=== PATIENT | male | born 1960 | race Caucasian/White ===

== ENCOUNTER 2019-08-17 11:18 | Outpatient (CLI) | payer BC, SELFPAY ==
[2019-08-17 11:55] LABS: Cholesterol 219 mg/dL (0-200); HDL Direct 34 mg/dL; Triglycerides 105 mg/dL (<150)
[2019-08-17 12:05] LABS: LDL Cholesterol Direct 154 mg/dL
== END 2019-08-17 11:19 | disposition home or self-care (01) ==
PROVIDERS: Visit Provider Surgery
DX: E78.1 Pure hyperglyceridemia (principal)
CPT/HCPCS: 36415; 80061

== ENCOUNTER 2019-09-10 00:56 | Outpatient (CLI) | payer BC, SELFPAY ==
[2019-09-10 20:05] LABS: SARS-CoV-2 RNA PCR Negative
== END 2019-09-10 00:57 | disposition home or self-care (01) ==
LOC: ANHCOVIDDT 00:57
PROVIDERS: Visit Provider Surgery
DX: Z01.812 Encounter for preprocedural laboratory examination (principal); Z11.59 Encounter for screening for other viral diseases
CPT/HCPCS: 87635; C9803; U0003

== ENCOUNTER 2019-09-13 00:44 | Day surgery (SDC) | payer BC, SELFPAY ==
[2019-09-02 14:37] VITALS: BMI 27.6
[2019-09-13 09:52] VITALS: BP 121/82; PULSE 100; RESP 18; TEMP 36.3; O2SAT 98
[2019-09-13] MEDS: LACTATED RINGERS 1,000 ML 150 ML IV CONT (10:14)
--- NOTE | 2019-09-13 10:41 | WPDANESEPPF ---
Anes - Initial Pre Proc Eval Procedure: Operation Date: 09/13/19 12:00 Proposed Procedures p Esophagogastroduodenoscopy With Possible Dilation & Colonoscopy - Fred Mary DO Date/Time: 09/13/19 10:41 Surgeon: Fred Mary DO Pre Op Diagnosis: Epigastric Pain Patient Data Age: 59 Gender: M Height: 1.85 m Weight: 95 kg Last Vital Signs Temp 36.3 C L 09/13/19 09:52 Pulse 100 09/13/19 09:52 Resp 18 09/13/19 09:52 BP 121/82 09/13/19 09:52 Pulse Ox 98 09/13/19 09:52 Allergies Allergy/AdvReac Type Severity Reaction Status Date / Time milk Allergy Unknown inflammatio Verified 09/13/19 09:51 n Home Medications Medication Instructions Recorded Confirmed Type sertraline 100 mg tablet 100 mg PO DAILY 08/16/19 09/02/19 History Patient hx anesthesia problems: none Family hx anesthesia problems: none [facility] Social History Social History Smoking status: Former smoker Alcohol intake: current Substance use: never 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 Gender identity (if verbalized by the patient): Male Sexual Orientation (if Verbalized by the Patient): Straight or Heterosexual Anes - Eval Final PreProcedure Day of Procedure 09/13/19 10:41 Patient weight: overweight Heart: regular rate and rhythm Lungs: clear to auscultation and normal air movement Airway: Mallampati scale class II Neurological: alert and oriented Last oral intake: >/= 8 hours ASA classification: II Emergent: no Anesthetic plan: proceed Anesthesia type and monitoring: general GIVS Informed Consent: The patient's anesthetic plan and its attendant risks and benefits were discussed with the patient/family/POA. Questions were solicited and answers provided to the satisfaction of the patient/family/POA.
--- NOTE | 2019-09-13 11:44 | WPDHPUPDATE1 ---
History and Physical Update Update Date/Time: 09/13/19 11:44 History and Physical has been reviewed, including an updated exam of the patient. There are NO changes in the patient's condition. Risks, benefits, and alternatives have been discussed and questions answered. Patient agrees to proceed with procedure.
[2019-09-13 12:27] VITALS: BP 93/66; PULSE 84; RESP 15; O2SAT 95
[2019-09-13 12:37] VITALS: BP 96/66; PULSE 78; RESP 14; O2SAT 98
[2019-09-13 12:47] VITALS: BP 110/75; PULSE 71; RESP 12; O2SAT 98
== END 2019-09-13 13:15 | disposition home or self-care (01) ==
PROVIDERS: Visit Provider Surgery
PROC: 0DJ08ZZ Inspection of Upper Intestinal Tract, Via Natural or Artificial Opening Endoscopic (ICD-10-PCS; CPT 43235; principal; 2019-09-13 12:00)
DX: Z12.11 Encounter for screening for malignant neoplasm of colon (principal); K57.30 Diverticulosis of large intestine without perforation or abscess without bleeding; K21.9 Gastro-esophageal reflux disease without esophagitis; K44.9 Diaphragmatic hernia without obstruction or gangrene; K29.50 Unspecified chronic gastritis without bleeding; K22.2 Esophageal obstruction; E78.00 Pure hypercholesterolemia, unspecified; F41.9 Anxiety disorder, unspecified; Z87.891 Personal history of nicotine dependence
CPT/HCPCS: 45378; 43239; 87081; 88305; C1726; J2704; J7120

== ENCOUNTER → 2020-03-25 01:18 | Outpatient (CLI) | payer BC, SELFPAY ==
[2020-03-25 20:39] LABS: SARS-CoV-2 RNA PCR Negative
== END ==
PROVIDERS: Visit Provider Surgery
DX: Z01.812 Encounter for preprocedural laboratory examination (principal); Z20.822 Contact with and (suspected) exposure to COVID-19; K40.20 Bilateral inguinal hernia, without obstruction or gangrene, not specified as recurrent
CPT/HCPCS: C9803; U0003; U0005

== ENCOUNTER 2020-03-29 01:13 | Day surgery (SDC) | payer BC, SELFPAY ==
[2020-03-24 15:38] VITALS: BMI 26.4
[2020-03-29] VITALS (10 sets, daily range): BP systolic 121–153; BP diastolic 82–90; PULSE 71–95; RESP 8–18; TEMP 36.3–36.4; O2SAT 98–100
[2020-03-29] MEDS: ACETAMINOPHEN 500 MG TABLET 1000 MG PO (07:51)
[2020-03-29] MEDS: KETOROLAC 15 MG/ML VIAL (*BKC) IV PUSH (07:52)
[2020-03-29] MEDS: LACTATED RINGERS 1,000 ML 30 ML IV CONT ×2 (07:55→11:34)
--- NOTE | 2020-03-29 09:11 | WPDHPUPDATE1 ---
History and Physical Update Update Date/Time: 03/29/20 09:11 History and Physical has been reviewed, including an updated exam of the patient. There are NO changes in the patient's condition. Risks, benefits, and alternatives have been discussed and questions answered. Patient agrees to proceed with procedure.
--- NOTE | 2020-03-29 09:15 | WPDANESEPPF ---
Anes - Initial Pre Proc Eval Procedure: Operation Date: 03/29/20 09:15 Proposed Procedures p Laparoscopic Bilateral Inguinal Hernia Repair With Mesh, Davinci Assisted - Fred Mary DO Date/Time: 03/29/20 09:15 Surgeon: Fred Mary DO Pre Op Diagnosis: Bilateral Inguinal Hernia Patient Data Age: 59 Gender: M Height: 1.85 m Weight: 96.55 kg Last Vital Signs Temp 36.3 C L 03/29/20 07:31 Pulse 91 03/29/20 07:31 Resp 18 03/29/20 07:31 BP 153/84 H 03/29/20 07:31 Pulse Ox 100 03/29/20 07:31 Allergies Allergy/AdvReac Type Severity Reaction Status Date / Time No Known Drug Allergies AdvReac Other Verified 03/29/20 08:09 Home Medications Medication Instructions Recorded Confirmed Type No Home Medications 03/29/20 03/29/20 History Laboratory Tests 03/29/20 07:50 Blood Type A Positive Antibody Screen Negative Patient hx anesthesia problems: none Family hx anesthesia problems: none PMFSH Past Medical History Medical History Anxiety Esophageal stricture Exertional dyspnea High blood cholesterol Pneumonia Surgical History Surgical History History of esophageal stricture Family History Family History Father Diabetes mellitus Hypertension Social History Social History Smoking status: Never smoker Second hand tobacco smoke exposure: No Alcohol intake: current Substance use: never Living arrangements: with family Additional occupation/education comments: truck packer Gender identity (if verbalized by the patient): Male Anes - Eval Final PreProcedure Day of Procedure 03/29/20 09:15 Patient weight: overweight Heart: regular rate and rhythm Lungs: clear to auscultation and normal air movement Airway: Mallampati scale class II Neurological: alert and oriented Last oral intake: >/= 8 hours ASA classification: II Emergent: no Anesthetic plan: proceed Anesthesia type and monitoring: general ETT Informed Consent: The patient's anesthetic plan and its attendant risks and benefits were discussed with the patient/family/POA. Questions were solicited and answers provided to the satisfaction of the patient/family/POA.
[2020-03-29] MEDS: ceFAZolin 2 GM/D5W 50 ML 2 GM/50 ML BAG IVPB (09:37)
--- NOTE | 2020-03-29 10:30 | SUR.OPER ---
BILATERAL INGUINAL HERNIA MESH PROGRIP [id number] LOT [id number], EXP 2022-11-16 X2 RIGHT AND LEFT
[2020-03-29] MEDS: BUPIVACAINE/EPINEPHRINE 0.5% 30 ML VIAL INFILTRATE (10:37)
--- NOTE | 2020-03-29 11:25 | PM.PROC ---
Procedure Note - Detailed Date of procedure: 03/29/20 Pre-op diagnosis: Bilateral Inguinal Hernia Post-op diagnosis: same (Darius LIRobert, [facility]) Procedure performed: Laparoscopic bilateral inguinal hernia repair with Progrip mesh, da Anyi assisted Description of procedure: Procedure as well as risks, benefits, and alternatives were discussed with the patient. Written consent was obtained and placed in chart prior to procedure. Patient was brought back to surgical suite. He was placed supine on operating table. Time-out was done to confirm patient and procedure. He was then intubated by Anesthesia Department. His abdomen was prepped and draped in sterile fashion using chlorhexidine prep. 0.5% bupivacaine with epinephrine was infiltrated at each location for incision. A 12 millimeter transverse incision was made just superior to the umbilicus using a 15 blade scalpel. Blunt dissection was carried out down to the linea alba. A vertical incision was made at the linea alba using a 15 blade scalpel. The peritoneum was then bluntly entered. A 12 millimeter trocar was inserted and carbon dioxide insufflation was used to create a pneumoperitoneum. A camera was inserted and the abdominal cavity was inspected. The patient was placed in slight Trendelenburg position. An 8 millimeter incision was made on the right lateral abdomen and an 8 millimeter trocar was inserted under direct visualization. Another 8 millimeter incision was made in the left lateral abdomen and an 8 millimeter trocar was inserted under direct visualization. The robotic arms were brought up to the patient's bedside and secured to the ports. The camera and instruments were inserted. I then moved over to the robotic console and took control of the camera and instruments. After careful inspection of the abdominal cavity, I began scoring the peritoneum along the left lower quadrant using scissors with electrocautery. The preperitoneal plane was entered and this was carefully dissected caudally along the inferior epigastric vessels. Careful dissection with scissors with electrocautery and blunt dissection was used to continue this dissection. I dissected far enough laterally to allow for mesh placement, and also dissected medially to identify the pubic arch and Brett's ligament. The hernia sac was identified and carefully dissected posteriorly. The cord contents were also identified and the peritoneum was carefully dissected far enough posteriorly to allow for mesh placement. Once an adequate pocket was created, I then placed the mesh within the preperitoneal pocket and carefully unfolded it. The mesh was centered on the hernia defect with adequate overlap circumferentially. The inferior edge of the mesh was inspected to ensure that it was far enough away from the peritoneal edge. The mesh appeared in proper position overlying the entire myopectineal orifice. The peritoneum was then closed over the mesh using a 3-0 V-lock running absorbable suture. I then began scoring the peritoneum along the right lower quadrant using scissors with electrocautery. The preperitoneal plane was entered and this was carefully dissected caudally along the inferior epigastric vessels. Careful dissection with scissors with electrocautery and blunt dissection was used to continue this dissection. I dissected far enough laterally to allow for mesh placement, and also dissected medially to identify the pubic arch and Brett's ligament. The hernia sac was identified and carefully dissected posteriorly. The cord contents were also identified and the peritoneum was carefully dissected far enough posteriorly to allow for mesh placement. Once an adequate pocket was created, I then placed the mesh within the preperitoneal pocket and carefully unfolded it. The mesh was centered on the hernia defect with adequate overlap circumferentially. The inferior edge of the mesh was inspected to ensure that it was far enough away fr
[2020-03-29] MEDS: oxyCODONE HCL (*CRX) 5 MG TAB IR PO (13:36)
== END 2020-03-29 14:25 | disposition home or self-care (01) ==
PROVIDERS: Visit Provider Surgery
PROC: 8E0Y4CZ Robotic Assisted Procedure of Lower Extremity, Percutaneous Endoscopic Approach (ICD-10-PCS; CPT 49650; principal; 2020-03-29 09:15)
DX: K40.20 Bilateral inguinal hernia, without obstruction or gangrene, not specified as recurrent (principal)
CPT/HCPCS: 49650; S2900; 36415; 86850; 86900; 86901; A9270; C1781; J0690; J1100; J1170; J1885; J2250; J2405; J2704; J2710; J3010; J7030; J7120